=== PATIENT | female | born 1965 | race Caucasian/White ===

== ENCOUNTER 2021-11-25 04:40 | Observation (INO) ==
--- NOTE | 2021-10-27 08:28 | History & Physical Report ---
Date of Service October 27, 2021 date of surgery: 11/25/21 Procedure: Right Total Knee Arthroplasty Surgeon: Ian Sarabia Assessment & Plan (1) Arthritis of right knee: Plan: xrays show advanced DJD right knee with complete loss joint space medial compartment and PF joint. we discussed options, she would like to proceed with right TKA Gopi block at [facility] as outpatient joint program. will set up HHPT, ASA 81mg po bid x 1 month. she has failed cons measures including arthroscopy, cortisone inj, visco inj and NSAID therapy. The risks and benefits have been discussed including, but not limited to, risk of infection, nerve injury, stiffness, loss of motion, failure to improve, etc. Reasonable outcomes and options of treatment were discussed. An explanation of appropriate alternatives to the procedure that may be advantageous were discussed and their risks and benefits, as well as the risks and benefits of not proceeding with treatment. I offered to answer any additional inquiries concerning the treatment involved. All the patient's questions were answered. The patient is agreeable, understanding of the treatment plan and alternatives, and wishes to proceed with the treatment plan. History of Present Illness Chief Complaint: right knee pain Primary Care Provider: NO PCP Janette is a 56 year old female who complains of right knee pain, presents for pre-op evaluation prior to a right total knee replacement by Dr Sarabia at [facility]. she complains of pain and decreased range of motion in her right knee. Currently the patient states that the symptoms are moderate-severe. The pain is described as aching, sharp and throbbing. Her symptoms are aggravated by ascending stairs, daily activities, first steps while awake walking. Prior NSAIDs include Meloxicam and IBU. she has been treated with previous cortisone and visco injections in the past without much relief. in Jun 2020 she underwent Right knee arthroscopic partial medial meniscectomy partial lateral meniscectomy chondroplasty patellofemoral joint chondroplasty medial femoral condyle. Allergies Allergy/AdvReac Type Severity Reaction Status Date / Time Sulfa (Sulfonamide Allergy Severe Anaphylaxis Verified 06/29/21 09:49 Antibiotics) formaldehyde Allergy Intermediate Fluid Verified 07/06/21 13:43 build up, difficulty moving (knee injection rxn) graham syedgger adhesive Allergy Intermediate Hives Uncoded 06/29/21 09:49 Home Medications Medication Instructions Recorded Confirmed Type albuterol sulfate 90 mcg/actuation 2 puff INHALATION Q6H PRN 06/29/21 06/29/21 History aerosol inhaler (Ventolin HFA) famotidine 20 mg tablet (Pepcid) 20 mg PO HS 06/29/21 06/29/21 History fiber 2 tab PO QAM 06/29/21 06/29/21 History fluticasone propionate 100 1 inh INHALATION QAM 06/29/21 06/29/21 History mcg/actuation blister powder for inhalation (Flovent Diskus) fluticasone propionate 50 1 spray INTRANASAL QAM 06/29/21 06/29/21 History mcg/actuation nasal spray,suspension loratadine 10 mg tablet (Claritin) 10 mg PO QAM 06/29/21 06/29/21 History meloxicam 15 mg tablet 15 mg PO QAM 06/29/21 06/29/21 History multivitamin 1 tab PO QAM 06/29/21 06/29/21 History nystatin 100,000 unit/gram topical 1 applic TOPICAL BID 06/29/21 06/29/21 History powder (Nyamyc) omega-3 fatty acids 1,000 mg PO QAM 06/29/21 06/29/21 History peg 400-propylene glycol (PF) 0.4 1 drp OPHTHALMIC (EYE) QID 06/29/21 06/29/21 History %-0.3 % eye drops in a dropperette (Systane (PF)) Past Med/Surg History Medical History Asthma Stable GERD (gastroesophageal reflux disease) Controlled Morbid obesity Osteoarthritis Sleep apnea CPAP (compliant) Surgical History History of ankle surgery left History of arthroscopy of left knee History of arthroscopy of right knee History of bilateral tubal ligation History of carpal tunnel surgery of left wrist History of carpal tunnel surgery of right wrist x2 History of cholecystectomy History of colonoscopy History of dilatation and curettage History of endometrial ablation History of partial hysterectomy History of repair of right rotator cuff History of tooth extraction S/P surgical removal of pilonidal cyst S/P trigger finger release R/L thumb Family History Other No family history of adverse response to anesthesia Social History Smoking Status: Former smoker Second Hand Exposure: No; Hx Alcohol Use: Yes Hx Substance Use: No Preferred Language: Guinean Communication Ability: Effective Assembler Equipment Required: No Beliefs That Will Affect Care: None Current Living Situation: Spouse and Family Current Living Situation Comment: Lives with and son Feels Safe at Home: Yes Assistive Devices: Cane, CPAP and Glasses Review of Systems Review of Systems: All systems reviewed & are unremarkable except as noted in HPI & below Constitutional: no fever, no chills and no sweats Respiratory: no cough and no dyspnea Cardiovascular: no chest pain, no dyspnea and no orthopnea Gastrointestinal: no abdominal pain, no nausea and no vomiting Musculoskeletal: as per Subjective / HPI Physical Exam Physical Exam: HT: 5ft 2in WT: 110kg Constitutional: WD/WN, vitals as above no acute distress Respiratory: normal respiratory effort, lungs clear to auscultation no respiratory distress, no labored breathing and does not use accessory muscles Cardiovascular: RRR, no murmur, no edema Gastrointestinal (Abdomen): normal bowel sounds, soft, nontender, no hepatosplenomegaly Musculoskeletal: Knee: + knee abnormal to inspection (RIGHT KNEE), + effusion (+1 effusion), + limited ROM of knee (ROM 0/3/110), + knee ROM with crepitation, + joint line tenderness (medial joint line) and + Janeth's sign positive; no deformity, no skin erythema, no ecchymosis, no valgus laxity, no varus laxity, anterior drawer test negative, Brianna's sign negative and pivot shift test negative Results & Data Results & Data ([facility]) Diagnostic Findings Right Knee X-ray: Right knee series showing advanced degenerative changes to the right knee, narrowing of the medial compartment and patello-femoral joint with patellar spurring noted, findings showing joint space narrowing of the medial compartment and patello-femoral joint, osteophyte formation and subchondral sclerosis noted. overall varus alignment. no acute bony pathology noted.
--- NOTE | 2021-11-16 11:09 | Anesthesiology Consultation ---
Date of Service November 16, 2021 Assessment & Plan (1) Encounter for pre-operative examination: - back pain/recent ER visit: Pt went to [facility] ER in [place] 11/17/21 for back pain. Pt states refused pain medication as thought would prevent surgery progressing. She was advised records will need reviewed with anesthesiologist in addition to review of cardiac history below, but she can proceed with recommended regimens by managing providers and to call our office with any new or changed meds, provided my direct #. Will attempt to obtain copy of ER note and testing. Pt states is also to call PCP office today for further discussion/pre-op determination. - cardiac murmur: chronic per pt d/t rheumatic fever in 90s. Per patient cleared by PCP with knowledge of murmur for TKA, appt 11/10. We will attempt to obtain copy of office note, any available echo. - palpitations: chronic, rare "flutter" associated with "difficulty taking deep breath" lasting several seconds then fully resolving. Denies change or worsening, dizziness or lightheadedness. Denies previous cardiology evaluation, expresses PCPs have monitored in past. - Pt reports seeing pulmonology provider Keiry Chi with [facility] for asthma and sleep apnea, will attempt to obtain copy of most recent pulm note. - Surgery re-scheduled since 06/2021 anesthesia review. Below from that [facility] appt note: - h/o post-op hypoxia, "improved with deep breaths" per previous anesthesia consult. - Outpatient joint pathway: Per OR booking comments/patient, plan for outpatient joint program. Patient seen at [facility] 07/06. Case reviewed with Dr. Beth. Patient reports strong post-op family support stating , son and daughter will be available to help her post-operatively. Patient is an acceptable risk to proceed as possible outpatient joint pathway pending perioperative course. Surgeon's office arranging post-op home management. - COVID screening: Per home assessment nurse on 11/03/2021: Travel screen negative, no known COVID-19 positive contacts or current COVID-19 related symptoms in past 2 weeks. Patient vaccinated. Surgeon arranging preop COVID testing, scheduled 11/23/2021. Awaiting results. Chart Review Chart Review: Pending: Refer to Additional Notes / Consult section and Patient NOT seen in Pre Admission Testing History Surgery Operation Date: 11/25/21 14:00 Proposed Procedures p OP: Right Total Knee Arthroplasty - Ian Sarabia DO Height/Weight Height: 5 ft 2 in Weight: 111.13 kg Allergies Allergy/AdvReac Type Severity Reaction Status Date / Time Sulfa (Sulfonamide Allergy Severe Anaphylaxis Verified 11/03/21 12:34 Antibiotics) formaldehyde Allergy Intermediate Fluid Verified 11/03/21 12:34 build up, difficulty moving (knee injection rxn) nickel Allergy Mild RASH WITH Verified 11/03/21 12:34 JEWELRY graham hugger adhesive Allergy Intermediate Hives Uncoded 11/03/21 12:34 Medications Home Medications Medication Instructions Recorded Confirmed Last Taken albuterol sulfate 90 mcg/actuation 2 puff INHALATION Q6H PRN 06/29/21 11/03/21 Unknown aerosol inhaler (Ventolin HFA) famotidine 20 mg tablet (Pepcid) 20 mg PO HS 06/29/21 11/03/21 Unknown fiber 2 tab PO QAM 06/29/21 11/03/21 Unknown fluticasone propionate 100 1 inh INHALATION QAM 06/29/21 11/03/21 Unknown mcg/actuation blister powder for inhalation (Flovent Diskus) fluticasone propionate 50 1 spray INTRANASAL QAM 06/29/21 11/03/21 Unknown mcg/actuation nasal spray,suspension meloxicam 15 mg tablet 15 mg PO QAM 06/29/21 11/03/21 Unknown multivitamin 1 tab PO QAM 06/29/21 11/03/21 Unknown nystatin 100,000 unit/gram topical 1 applic TOPICAL BID PRN 06/29/21 11/03/21 Unknown powder (Nyamyc) omega-3 fatty acids 1,000 mg PO QAM 06/29/21 11/03/21 Unknown peg 400-propylene glycol (PF) 0.4 1 drp OPHTHALMIC (EYE) QID 06/29/21 11/03/21 Unknown %-0.3 % eye drops in a dropperette (Systane (PF)) diclofenac sodium 1 % topical gel 2 g TOPICAL QID 11/03/21 11/03/21 Unknown montelukast 10 mg tablet 10 mg PO QAM 11/03/21 11/03/21 Unknown Past Medical History Medical History (Updated 11/18/21 @ 09:11 by Melina Bellamy PA-C) Asthma Stable-LAST RESCUE INHALER USE LAST WEEK Cardiac murmur chronic per pt d/t rheumatic fever in 90s, she states also has chronic rare "flutter" lasting seconds associated with difficulty taking a deep breath then self-resolving. Denies change or worsening. GERD (gastroesophageal reflux disease) Controlled History of COVID-19 08/27/[address] [facility]S FEVER, FATIGUE, BODY ACHES, SINUS SYMPTOMS, COUGH- RECOVERED AT HOME-ALL RESOLVED EXCEPT STILL HAVING SOME SINUS ISSUES Kidney stones Morbid obesity Osteoarthritis Sleep apnea CPAP (compliant) Past Family History Family History Brother Family history of diabetes mellitus Brother Family history of diabetes mellitus Other No family history of adverse response to anesthesia Past Surgical History Surgical History History of ankle surgery left History of arthroscopy of left knee History of arthroscopy of right knee History of bilateral tubal ligation History of carpal tunnel surgery of left wrist History of carpal tunnel surgery of right wrist x2 History of cholecystectomy History of colonoscopy History of dilatation and curettage History of endometrial ablation History of lithotripsy History of partial hysterectomy History of repair of right rotator cuff X 2 History of tooth extraction S/P surgical removal of pilonidal cyst S/P trigger finger release R/L thumb Social History Smoking Status: Former smoker Do You Dip or Chew Tobacco: No Smoking End Date: QUIT 33 YRS AGO Hx Alcohol Use: Yes Alcohol type: wine alcohol intake frequency: other Alcohol Intake Frequency Comment: 1-2 X A MONTH Hx Substance Use: No substance use type: does not use Testing Laboratory Results 11/03/2021 WBC: 8.5 H/H: 15/48 PLATELETS: 295 SODIUM: 137 POTASSIUM: 3.7 CHLORIDE: 105 CO2: 27 BUN: 10 CREATININE: 0.7 GLUCOSE: 129 A1c: 5.9% PT: 11.2 PTT: 34.9 INR: 1 UA: light yellow, clear, trace blood, negative Electrocardiogram Date: 07/06/21 NSR, rate 68 bpm Chest X-Ray Date: 07/06/21 No lines and tubes are seen. The cardiomediastinal silhouette is normal. The lungs are clear. No evidence of pleural effusion or pneumothorax. IMPRESSION: No acute chest disease.
[2021-11-25] MEDS ORDERED: oxyCODONE HCL 10 MG TABCR (OxyCONTIN) PO SCH (06:00)
[2021-11-25] MEDS ORDERED: METOCLOPRAMIDE HCL 10 MG TABLET PO SCH (06:00)
[2021-11-25] MEDS ORDERED: TRANEXAMIC ACID 1,000 MG **IV Pre-op IV SCH (06:00)
[2021-11-25] MEDS ORDERED: FAMOTIDINE 20 MG TAB PO SCH (06:00)
[2021-11-25] MEDS ORDERED: dexAMETHasone 4 MG TAB PO SCH (06:00)
[2021-11-25] MEDS ORDERED: ROPIVACAINE 0.5% HCL/PF 150 MG, BUPIVACAINE 0.75% MPF 20 ML, EPINEPHrine 30MG/30ML (OR ... INFIL SCH (06:00)
[2021-11-25] MEDS ORDERED: ceFAZolin 2000MG 2,000 MG/15 ML SYR IV SCH (06:00)
[2021-11-25] MEDS ORDERED: TRANEXAMIC ACID 1,000 MG **IV Intra-op IV SCH (06:00)
[2021-11-25] MEDS ORDERED: ACETAMINOPHEN 500 MG TAB PO SCH (06:00)
[2021-11-25] MEDS ORDERED: GABAPENTIN 600 MG DOSE PO SCH (06:00)
[2021-11-25] MEDS ORDERED: LR 500ML BOLUS, THEN 15ML/HR IV SCH (06:00)
[2021-11-25] MEDS ORDERED: BUPIVACAINE 0.25% 30 ML VIAL ONE (06:11)
[2021-11-25] MEDS ORDERED: DEXAMETHASONE SOD INJ 4 MG/ML VIAL ONE (06:11)
[2021-11-25] MEDS ORDERED: EPINEPHrine INJ 1 MG/ML AMP ONE (06:11)
[2021-11-25] MEDS ORDERED: BUPIVACAINE 0.5 % 5 MG/1 ML PF 10ML VIAL ONE (06:11)
[2021-11-25] MEDS ORDERED: PROPOFOL IV EMULSION 10 MG/ML 20 ML VIAL IV ONE (06:39)
[2021-11-25] MEDS ORDERED: fentaNYL citrate 100 MCG/2 ML VIAL ONE (06:51)
[2021-11-25] MEDS ORDERED: MIDAZOLAM HCL 1 MG/ML 2ML VIAL ONE ×2 (06:52)
--- NOTE | 2021-11-25 07:06 | History & Physical Bridge Note ---
Date of Service November 25, 2021 History & Physical Bridge Note I have examined the patient, reviewed the History & Physical and in the interval since the performance of the History & Physical I have noted the following changes of clinical significance: no changes noted
[2021-11-25] MEDS ORDERED: fentaNYL citrate 100 MCG/2 ML VIAL IV PRN (07:27)
[2021-11-25] MEDS ORDERED: ONDANSETRON INJ 2 MG/ML 2 ML VIAL IV PRN ×2 (07:27→10:11)
[2021-11-25] MEDS ORDERED: ATROPINE SULFATE 0.1 MG/ML 10ML SYR IV PRN (07:27)
[2021-11-25] MEDS ORDERED: ePHEDrine sulfate 50 MG/ML AMP IV PRN (07:27)
[2021-11-25] MEDS ORDERED: ORTHO JOINT ANESTHETIC ONE (07:31)
--- NOTE | 2021-11-25 08:31 | Operative Report ---
Post Operative Report Pre & Post Diagnosis Operation Date: 11/25/21 07:15 Pre-Op Diagnosis: Right Knee Osteoarthritis Post-Op Diagnosis: Right Knee Osteoarthritis I identified the patient and participated in the time-out.: Yes Procedure Operation Date: 11/25/21 07:15 Actual Procedures p Right Total Knee Arthroplasty(Right) utilizing Gopi [employer] persona patient matched size 6 right standard titanium size D stemmed tibia size 10 polymedial constrained 28 oval patella Ian Sarabia DO Surgeon Ian Sarabia DO Automated Equipment Engineer Technician ADAM Light Estimated Blood Loss 5 Findings Consistent with Post-Op Diagnosis Patient presents with severe end-stage DJD 10 degree flexion contracture varus alignment subchondral sclerosis marginal osteophytes eburnated [id number] with moderate to large effusion Specimens Bone and cartilage Drains Medium bore Hemovac Anesthesia Type MAC Spinal Regional Complications none Disposition Accompanied Patient To Recovery: No Disposition: Recovery Room Indications Patient presents with severe end-stage tricompartmental degenerative joint disease no response to conservative management failed patient fell attempted corticosteroid injection viscosupplementation relative rest activity modification the above intraoperative findings were noted Description of Procedure After proper prepping and draping of the Right lower extremity anterior midline incision was made over the region of the extensor extensor mechanism after meticulous hemostasis was obtained and maintained in subcutaneous tissues a medial parapatellar incision was made The patella was subluxed lateralward the medial lateral gutter were cleaned from any hypertrophic synovitis and scar tis javy of the distal femoral block was placed and the distal femoral osteotomy cut was made subsequently the chamfers anterior and posterior osteotomy cuts were made utilizing the 4-in-1 block the tibia was subsequently subluxed anteriorward medial and ateral meniscal remnants were excised in their entirety remnants of the anterior and posterior cruciate ligaments were excised in their entirety excellent exposure of the proximal tibia was obtained the tibial osteotomy guide was placed on the proximal tibial osteotomy cut was made once again the knee was irrigated with copious amounts of sterile saline solution the patella was subsequently everted lateralward thickened scar tissue around the patella was removed the patella was subsequently cut utilizing a freehand technique and was drilled prepared for final preparation and placement of patella socially flexion-extension gaps were checked and the equal and symmetric trials were placed to the appropriate femoral and tibial trials with poly-spacer being placed for equal flexion and extension gaps and full range of motion including extension to 0 and flexion to 140 the trial components after having been taken to recovery range of motion was subsequently removed meticulous hemostasis was obtained and maintained subsequently a knee block injection of joint cocktail including ropivacaine 0.5% 150 mg. Bupivacaine 0.5% epinephrine 1-200,030 mL's toradol 30 mg dexamethasone 4 mg ketamine 10 mg clonidine 100 micrograms normal saline solution 30 mg was infiltrated into the soft tissues of the posterior knee medial lateral gutters and periosteal synovium special attention was paid to protect neurovascular structures at all times subsequently trial components having been removed the knee was irrigated with sterile saline solution. debris was removed the proximal tibia was subsequently prepared and was made ready for the placement of the tibial component tibial component was also cemented and tamped into position the femoral component was subsequently placed and cemented in the position the patellar component was subsequently cemented in position because hemostasis once again obtained and maintained wound having been thoroughly irrigated with debridement and debridement lavage was performed as well as a medial parapatellar incision closed with #1 Vicryl in interrupted fashion subcutaneous was closed with #2 Vicryl skin was closed with skin clips. PA-C was necessary for prepping and drapping as well as wound closure of deep fascia Sub cutaneous tissue and skin and was necessary for the case. A sterile compressive dressing was placed patient was taken to recovery in stable condition of report dictated by Cornell I attest to the content of the Intraoperative Record and any orders documented therein. Any exceptions are noted below.Due to the complex nature of the procedure, the entire surgery was performed with the operational assistance of ADAM Light. The hospital nursing assistant, under direct supervision, was involved in the actual performance of all aspects of the surgical procedure including hemostasis, tissue retraction and incision, instrument management, patient positioning, and wound closure. I attest to the content of the Intraoperative Record and any orders documented therein. Any exceptions are noted below.
[2021-11-25] MEDS ORDERED: bisacodyL 10 MG SUPP PR PRN (10:11)
[2021-11-25] MEDS ORDERED: METOCLOPRAMIDE HCL INJ 5 MG/ML 2 ML VIAL IV PRN (10:11)
[2021-11-25] MEDS ORDERED: NALOXONE HCL 0.4 MG/1 ML VIAL/CARP IV PRN (10:11)
[2021-11-25] MEDS ORDERED: MAGNESIUM HYDROXIDE SUSP 30 ML UDC PO PRN (10:11)
[2021-11-25] MEDS ORDERED: NON-FORMULARY MEDICATION (Peg 400-Propylene Glycol (Pf) [Systane (Pf)] 0.4-0.3 % Dropperet OP SCH (10:11)
[2021-11-25] MEDS ORDERED: HYDROmorphone INJ 1 MG/ML SYRINGE IV PRN (10:11)
[2021-11-25] MEDS ORDERED: diphenhydrAMINE Capsule 25 MG CAP PO PRN (10:11)
[2021-11-25] MEDS ORDERED: ALBUTEROL HFA 8 GM INHALER INH PRN (10:11)
[2021-11-25] MEDS ORDERED: ALUMINUM/MAGNESIUM SUSP 30 ML UDC PO PRN (10:11)
[2021-11-25] MEDS ORDERED: SODIUM CHLORIDE 0.9% 1000ML 1,000 ML IV SCH (10:11)
[2021-11-25] MEDS ORDERED: [UNRECOGNIZED DRUG - OTHER] INH SCH (10:11)
[2021-11-25] MEDS ORDERED: oxyCODONE HCL IR 5 MG TAB (IMMEDIATE RELEASE) PO PRN (10:11)
[2021-11-25] MEDS ORDERED: NYSTATIN POWDER 15GM BTL EXT PRN (10:16)
--- NOTE | 2021-11-25 10:32 | Anesthesiology Progress Note ---
Date of Service November 25, 2021 Anesthesia Post Procedure Vital Signs Vital Signs: Temp Pulse Pulse Resp BP BP Pulse Ox 11/25/21 09:50 61 15 99/57 L 97 11/25/21 09:40 36.5 C 62 14 103/51 L 97 11/25/21 09:30 62 16 100/48 L 100 11/25/21 09:20 66 18 91/50 L 100 11/25/21 09:10 77 19 95/54 L 100 11/25/21 09:01 36.7 C 80 20 91/53 L 100 11/25/21 05:33 36.7 C 78 20 115/87 97 Transfer of Care Handoff Completed per policy Notes Mental Status: alert / awake / arousable Patient Amnestic to Procedure: Yes Nausea / Vomiting: adequately controlled Pain: adequately controlled Airway Patency, RR, SpO2: stable & adequate BP & HR: stable & adequate Hydration State: stable & adequate Neuraxial Anesthesia: was administered and sensory block is resolving Anesthetic Complications: no major complications apparent and Pt Satisfied with anesthetic care
--- NOTE | 2021-11-25 10:45 | XRay Report ---
RIGHT KNEE 2 VIEWS History: Right total knee arthroplasty. Degenerative arthritis. Postop. FINDINGS: The patient is status post a right total knee arthroplasty. The hardware is intact. No frac ture or dislocation. Surgical drains are in place. IMPRESSION: Right total knee arthroplasty. No evidence for hardware complication. ACT 112: Negative or not required by law. Electronically signed by: Bowen Cornell M.D. 11/25/2021 10:43 AM
[2021-11-25] MEDS: MONTELUKAST SODIUM 10 MG TABLET PO SCH (11:13)
[2021-11-25] MEDS: KETOROLAC 30 MG/ML VIAL IV SCH ×3 (11:13→23:33)
[2021-11-25] MEDS: FLUTICASONE PROPIONATE NA SPR 16 GM BTL NAE SCH (11:27)
[2021-11-25] MEDS ORDERED: FLUTICASONE FUROATE 100MCG 14 PUFFS/INHALER INH SCH (11:30)
[2021-11-25] MEDS: FLOVENT 100 MCG INH SCH ×2 (12:06→21:22)
[2021-11-25] MEDS: CALCIUM POLYCARBOPHIL 625MG TAB PO SCH (12:06)
[2021-11-25] MEDS: ACETAMINOPHEN 500 MG TAB PO SCH ×2 (14:06→21:20)
[2021-11-25] MEDS: ceFAZolin 2000MG 2,000 MG/15 ML SYR IV SCH ×2 (15:47→23:33)
[2021-11-25] MEDS ORDERED: SENNA 8.6 MG TAB PO SCH (21:00)
[2021-11-25] MEDS: ASPIRIN 81 MG ECTAB PO SCH (21:19)
[2021-11-25] MEDS: DOCUSATE SODIUM 100 MG CAP PO SCH (21:20)
[2021-11-26] MEDS: KETOROLAC 30 MG/ML VIAL IV SCH (05:44)
[2021-11-26] MEDS: ACETAMINOPHEN 500 MG TAB PO SCH ×2 (05:45→14:36)
[2021-11-26] MEDS ORDERED: PNEUMOCOCCAL POLYSACCHARIDES 25 MCG/0.5 ML VIAL/SYR IM ONE (08:00)
[2021-11-26 08:22] LABS: Hematocrit (blood only) 42.9 % (37-47); Hemoglobin 14.3 g/dL (12.0-16.0); Mean Corpuscular Hemoglobin 30.6 pg (25-34); Mean Corpuscular Hgb Conc 33.3 g/dL (32-36); Mean Corpuscular Volume 91.7 fL (80-100); Mean Platelet Volume 9.9 fL (7.4-10.4); Platelet Count 351 K/uL (130-400); RDW Coefficient of Variation 13.5 % (11.5-14.5); RDW Standard Deviation 45.2 fL (36.4-46.3); Red Blood Count 4.68 M/uL (4.2-5.4); White Blood Count 15.39 K/uL (4.8-10.8)
[2021-11-26] MEDS: CALCIUM POLYCARBOPHIL 625MG TAB PO SCH (08:36)
[2021-11-26] MEDS: ASPIRIN 81 MG ECTAB PO SCH (08:36)
[2021-11-26] MEDS: DOCUSATE SODIUM 100 MG CAP PO SCH (08:37)
[2021-11-26] MEDS: MONTELUKAST SODIUM 10 MG TABLET PO SCH (08:37)
[2021-11-26] MEDS: FLUTICASONE PROPIONATE NA SPR 16 GM BTL NAE SCH (08:37)
[2021-11-26] MEDS: FLOVENT 100 MCG INH SCH (08:38)
[2021-11-26 08:53] LABS: BUN Creatinine Ratio 20.7 (10-20); Calcium 9.6 mg/dl (8.5-10.1); Creatinine Clr Calc Pharmacy 91.4 ml/min; Est GFR (Non-African American) 81.1 ml/min; Potassium 3.9 mmol/L (3.5-5.1)
[2021-11-26] MEDS ORDERED: MULTIVITAMIN TAB PO SCH (09:00)
--- NOTE | 2021-11-26 09:59 | Orthopedic Progress Note ---
Date of Service November 26, 2021 Assessment & Plan (1) Arthritis of right knee: Plan: Postop day 1 status post right total knee arthroplasty PT/OT protocols. Weightbearing as tolerated. DVT prophylaxis-aspirin p.o. twice daily, SCDs, BRAD xiong. Pain management as written DC planning-patient is planning for home health services upon discharge. Admission and Anticipated Discharge Date Admission Date: November 25, 2021 Subjective Postop day 1 Patient sitting in the chair at the bedside. Having some mild pain this morning in the knee. No other complaints. Denies shortness of breath, chest pain, lightheadedness. Physical Exam Physical Exam: Dressings are clean, dry, and intact. Calves are soft and nontender. Neurovascular is intact. Toes are mobile. Results & Data ([facility]) Vital Signs (Past 12 Hours) Vital Signs Temp Pulse Resp BP Pulse Ox 11/26/21 07:24 36.3 C L 59 L 18 119/63 100 11/26/21 03:50 36.4 C L 70 16 129/70 96 Laboratory Results Laboratory Results WBC 15.39 K/uL (4.8-10.8) H 11/26/21 07:48 RBC 4.68 M/uL (4.2-5.4) 11/26/21 07:48 Hgb 14.3 g/dL (12.0-16.0) 11/26/21 07:48 Hct 42.9 % (37-47) 11/26/21 07:48 MCV 91.7 fL (80-100) 11/26/21 07:48 MCH 30.6 pg (25-34) 11/26/21 07:48 MCHC 33.3 g/dL (32-36) 11/26/21 07:48 RDW Std Deviation 45.2 fL (36.4-46.3) 11/26/21 07:48 RDW Coeff of Hardeep 13.5 % (11.5-14.5) 11/26/21 07:48 Plt Count 351 K/uL (130-400) 11/26/21 07:48 MPV 9.9 fL (7.4-10.4) 11/26/21 07:48 Sodium 134 mmol/L (136-145) L 11/26/21 07:48 Potassium 3.9 mmol/L (3.5-5.1) 11/26/21 07:48 Chloride 102 mmol/L (98-107) 11/26/21 07:48 Carbon Dioxide 24 mmol/L (21-32) 11/26/21 07:48 Anion Gap 8 (3-11) 11/26/21 07:48 BUN 17 mg/dl (6-23) 11/26/21 07:48 Creatinine 0.82 mg/dl (0.6-1.2) 11/26/21 07:48 Est Cr Clr Drug Dosing 91.4 ml/min 11/26/21 07:48 Est GFR ( Amer) 94.0 ml/min 11/26/21 07:48 Est GFR (Non-Af Amer) 81.1 ml/min 11/26/21 07:48 BUN/Creatinine Ratio 20.7 (10-20) H 11/26/21 07:48 Glucose 156 mg/dl (70-99(Fasting)) H 11/26/21 07:48 Calcium 9.6 mg/dl (8.5-10.1) 11/26/21 07:48 SARS-CoV-2, RNA, NAAT NEGATIVE (NEGATIVE) 11/25/21 05:15 Blood Type B Negative 11/25/21 05:56 Antibody Screen NEGATIVE 11/25/21 05:56 Impressions Knee X-Ray 11/25/21 09:05 RIGHT KNEE 2 VIEWS History: Right total knee arthroplasty. Degenerative arthritis. Postop. FINDINGS: The patient is status post a right total knee arthroplasty. The hardware is intact. No fracture or dislocation. Surgical drains are in place. IMPRESSION: Right total knee arthroplasty. No evidence for hardware complication. ACT 112: Negative or not required by law. Electronically signed by: Bowen Cornell M.D. 11/25/2021 10:43 AM
--- NOTE | 2021-11-30 08:00 | Discharge Summary ---
Date of Service date of discharge: November 26, 2021 date of admission: 11/25/21 Admission HPI Per Admitting Provider Janette is a 56 year old female who complains of right knee pain, presents for pre- op evaluation prior to a right total knee replacement by Dr Sarabia at [facility]. she complains of pain and decreased range of motion in her right knee. Currently the patient states that the symptoms are moderate-severe. The pain is described as aching, sharp and throbbing. Her symptoms are aggravated by ascending stairs, daily activities, first steps while awake walking. Prior NSAIDs include Meloxicam and IBU. she has been treated with previous cortisone and visco injections in the past without much relief. in Jun 2020 she underwent Right knee arthroscopic partial medial meniscectomy partial lateral meniscectomy chondroplasty patellofemoral joint chondroplasty medial femoral condyle. Principal Diagnosis right knee pain Discharge Exam Musculoskeletal right knee: NVDI, calf SNT, negative francisco sign. DP palpable, able to wiggle toes/ankle movement without difficulty. DARRYL dressing clean dry and intact. expected post-operative bruising noted. Discharge Data Allergies Allergy/AdvReac Type Severity Reaction Status Date / Time Sulfa (Sulfonamide Allergy Severe Anaphylaxis Verified 11/25/21 05:40 Antibiotics) formaldehyde Allergy Intermediate Fluid Verified 11/25/21 05:40 build up, difficulty moving (knee injection rxn) nickel Allergy Mild RASH WITH Verified 11/25/21 05:40 JEWELRY graham hugger adhesive Allergy Intermediate Hives Uncoded 11/25/21 05:40 Procedures Performed Operation Date: 11/25/21 07:15 Actual Procedures p Right Total Knee Arthroplasty(Right) - Ian Sarabia DO Ordered Studies 11/25/21 05:00 US - OR guided needle placemen Routine Hospital Course (1) Arthritis of right knee: Postop day 1 status post right total knee arthroplasty PT/OT protocols. Weightbearing as tolerated. DVT prophylaxis-aspirin p.o. twice daily, SCDs, BRAD xiong. Pain management as written DC planning-patient is planning for home health services upon discharge. Total Time Total Time Spent Total Time Spent (In Minutes): 20 Discharge Plan Discharge Items Patient Disposition: Home - Home Health Services Reason For Visit: Right Knee Osteoarthritis Discharge Diagnosis: RIGHT TOTAL KNEE REPLACEMENT Activity: Per Instructions section Lifting: Wait until after follow-up appointment Weightbearing: Right weightbearing Weightbearing Comment: WBAT WITH WALKER Non-emergency contact: Surgeon Call non-emergency contact if: you have any medication questions, your temperature is above 101, your wound has increased redness, your wound has increased drainage and your wound pain has increased Follow-up/Referrals: Ian Sarabia DO [Surgeon] - (Follow-up in 14 days from the day of your surgery for your first postoperative visit) Ca Lorenzana PA-C [Primary Care Provider] - Diet: Regular Addtl Attending Provider Instructions: ACTIVITY RECOMMENDATIONS: SELF CARE INSTRUCTIONS AFTER TOTAL KNEE REPLACEMENT A. You may need to continue a physical therapy program after discharge from the hospital. There are several options available to you. Your doctor will assist you in selecting the best one for you. 1. An out-patient facility 2 to 3 times a week for therapy or home therapy. 2. Continue working on all exercises taught to you in the hospital. Your goals should be to increase bending of your knee to 90 degrees and beyond and to fully straighten your knee. B. You may progress at your own pace from walking with a walker or crutches to a cane; then to no assistive devices. C. Make walking a part of your daily routine. Be up as much as comfortable with rest periods throughout the day. Rest with leg elevation is very important. Use the ice wrap frequently for the first 3-4 weeks. D. There are no restrictions on activities. You may ride in a car, shop, participate in cattle tester and all social activities. E. Wear the long elastic stockings (BRAD hose) 20 hours a day for 2 weeks after surgery. They can be removed several times a day for laundering and for a bath. F. You may shower, no tub baths until cleared by your doctor. SPECIAL CARE INSTRUCTIONS: VERY IMPORTANT TO READ AND REVIEW A. There are a few signs you need to watch for after you are home. Call [facility] if you notice any of the followin. Increased severe knee pain. Some pain is expected especially when you exercise. 2. Increased swelling in your leg or knee; pain or swelling of the calf muscle in either lower leg. 3. Any fluid drainage from the incision. 4. Shortness of breath or chest pain. B. Please call [facility] at if you have any concerns or questions about your operation or recovery. The doctor or his nurse will return your call promptly. C. You must take antibiotics before dental work, bladder, bowel or other surgery. Your doctor will provide you with a permanent care to carry describing this precaution. IMPORTANT: * REMEMBER TO TAKE ASPIRIN, 81 MG, TWICE DAILY FOR 4 WEEKS UNLESS OTHERWISE DIRECTED. THIS IS YOUR BLOOD THINNER. * HIGH RISK PATIENTS MAY BE PRESCRIBED A STRONGER BLOOD THINNER. THIS WILL BE PROVIDED AT DISCHARGE. * CALL IF INCREASED PAIN, REDNESS, DRAINAGE OR FEVER GREATER THAT 101. * WEAR BRAD HOSE 20 HOURS PER DAY FOR 2 WEEKS. * DARRYL Dressing- This is a large suction dressing covering your incision. This will help pull any excess drainage from the wound and allow your incision to heal properly. You may shower with this if you can keep the unit outside of the shower. If any bleeding or leakage is noted please call your doctor's office. This will remain on your incision for 7 days and then should be removed. This can be done yourself or by the home nursing staff if applicable. The entire unit is disposable once removed. Once removed, keep incision clean and dry. If redness or drainage is noted, please call your surgeon. once this is removed, follow these instructions: DERMABOND Prineo- This is a mesh tape dressing that is covered with glue. It should remain in place until the incision is properly healed, usually 10-14 days. This dressing is designed to naturally slough off. You may trim the excess mesh tape as it peels off. Incision may be briefly wet in a shower. Dry immediately by blotting with a clean, dry towel. Do not bath or swim until instructed by your doctor. Do not scratch, rub, or pick at the dressing. Do not apply any topical ointments or lotions until dressing is completely removed and/or instructed by your doctor. There may be a small piece of suture material at one end of your incision. Do not pull or trim this. If it is bothersome or catching on clothing, you may cover it with a band-aid. IF INCISION IS LEAKING THROUGH DRESSING, CALL THE OFFICE . FOLLOW UP VISIT: If appointment is not already scheduled: Please call [facility] to make a follow-up appointment for 2 weeks after your surgery at . Stand-Alone Forms: My [facility] Medications and DC Order Prescriptions: New aspirin 81 mg Tablet,Delayed Release (Dr/Ec) 81 mg PO BID 30 Days Qty: 60 RF: 0 acetaminophen [Tylenol Extra Strength] 500 mg Tablet 1,000 mg PO Q8 14 Days Qty: 84 RF: 0 polyethylene glycol 3350 [Miralax] 17 gram powder in packet 17 g PO DAILY PRN (Reason: constipation) Qty: 5 RF: 0 oxycodone 5 mg Tablet 5 mg PO Q4H MDD 6 PRN (Reason: pain) Qty: 30 RF: 0 Continued multivitamin Tablet 1 tab PO QAM RF: 0 famotidine [Pepcid] 20 mg Tablet 20 mg PO HS RF: 0 Flovent Diskus 100 mcg/actuation Blister With Device 1 inh INHALATION BID RF: 0 nystatin [Nyamyc] 100,000 unit/gram Powder 1 applic TOPICAL BID PRN (Reason: Skin Irritation) RF: 0 albuterol sulfate [Ventolin HFA] 90 mcg/actuation Hfa Aerosol Inhaler 2 puff INHALATION Q6H PRN (Reason: Shortness Of Breath) RF: 0 fluticasone propionate 50 mcg/actuation [place],Suspension 1 spray INTRANASAL QAM RF: 0 Systane (PF) 0.4-0.3 % Dropperette 1 drp OPHTHALMIC (EYE) QID RF: 0 fiber Tablet,Chewable 2 tab PO QAM RF: 0 montelukast 10 mg Tablet 10 mg PO QAM RF: 0 diclofenac sodium 1 % Gel 2 g TOPICAL QID RF: 0 Discontinued meloxicam 15 mg Tablet 15 mg PO QAM RF: 0 Fish Oil Capsule 1,000 mg PO QAM RF: 0 Discharge Orders: Discharge Order (Routine); Ordered 11/26/21 Ordered By: Albert Brown/Other Patient Handouts: Knee Replace Recovery, Knee Replace Manage Pain Admission Data Admit Date/Time: 11/25/21 09:05 Attending Provider: Ian Sarabia Admit Provider: Ian Sarabia Primary Care Provider: Ca Lorenzana Other Interventions: Discharge Summary Assessment (RN) Last Done: 11/26/21 13:19
== END 2021-11-26 15:32 | disposition home health service (06) ==
LOC: 3W 04:40 → ASU 04:40

== ENCOUNTER 2022-03-24 05:42 | Observation (INO) ==
--- NOTE | 2022-02-16 15:24 | PAT Medication Instructions ---
Medication Instructions Date of Service February 16, 2022 Home Medications albuterol sulfate 90 mcg/actuation aerosol inhaler (Ventolin HFA) 2 puff inhalation Q6H PRN famotidine 20 mg tablet (Pepcid) 20 mg PO HS fiber 2 tab PO QAM fluticasone propionate 100 mcg/actuation blister powder for inhalation (Flovent Diskus) 1 inh inhalation BID fluticasone propionate 50 mcg/actuation nasal spray,suspension 1 spray intranasal QAM multivitamin 1 tab PO QAM nystatin 100,000 unit/gram topical powder (Nyamyc) 1 applic topical BID PRN peg 400-propylene glycol (PF) 0.4 %-0.3 % eye drops in a dropperette (Systane (PF)) 1 drp ophthalmic (eye) QID montelukast 10 mg tablet 10 mg PO QAM acetaminophen 500 mg tablet 1,000 mg PO Q6H PRN STOP taking 24 hours before surgery nystatin 100,000 unit/gram topical powder (Nyamyc) 1 applic topical BID PRN DO NOT take the morning of surgery fiber 2 tab PO QAM multivitamin 1 tab PO QAM montelukast 10 mg tablet 10 mg PO QAM Take morning of surgery With a small sip of water, OTHERWISE NOTHING TO EAT OR DRINK AFTER MIDNIGHT: albuterol sulfate 90 mcg/actuation aerosol inhaler (Ventolin HFA) 2 puff inhalation Q6H PRN(use if needed; please bring with you to hospital day of surgery if possible) fluticasone propionate 100 mcg/actuation blister powder for inhalation (Flovent Diskus) 1 inh inhalation BID fluticasone propionate 50 mcg/actuation nasal spray,suspension 1 spray intranasal QAM peg 400-propylene glycol (PF) 0.4 %-0.3 % eye drops in a dropperette (Systane (P F)) 1 drp ophthalmic (eye) QID acetaminophen 500 mg tablet 1,000 mg PO Q6H PRN(if needed) Take evening before surgery albuterol sulfate 90 mcg/actuation aerosol inhaler (Ventolin HFA) 2 puff inhalation Q6H PRN(if needed) famotidine 20 mg tablet (Pepcid) 20 mg PO HS fluticasone propionate 100 mcg/actuation blister powder for inhalation (Flovent Diskus) 1 inh inhalation BID peg 400-propylene glycol (PF) 0.4 %-0.3 % eye drops in a dropperette (Systane (PF)) 1 drp ophthalmic (eye) QID acetaminophen 500 mg tablet 1,000 mg PO Q6H PRN(if needed) Other Notes If you have any questions please call us at [phone] or [phone] or [phone] or [phone]
--- NOTE | 2022-02-23 09:24 | History & Physical Report ---
Date of Service February 23, 2022 date of surgery: 03/24/22 Procedure: Left Total Knee Arthroplasty Surgeon: Ian Sarabia Assessment & Plan (1) Arthritis of knee, left: Plan: Presents for preop evaluation prior to left total knee replacement. She is scheduled for March 24. We will obtain medical clearance as well as preadmission testing at [facility]. She will discuss with them possible outpatient pathway, she was initially supposed to have her right knee as outpatient but was seen in the emergency room a few days before her surgery was recommended she stay overnight. Will place on aspirin 81 mg twice a day for 1 month postop, will schedule for IO vera treatment prior to her surgery. She otherwise has no other questions or concerns The risks and benefits have been discussed including, but not limited to, risk of infection, nerve injury, stiffness, loss of motion, failure to improve, etc. Reasonable outcomes and options of treatment were discussed. An explanation of appropriate alternatives to the procedure that may be advantageous were di scussed and their risks and benefits, as well as the risks and benefits of not proceeding with treatment. I offered to answer any additional inquiries concerning the treatment involved. All the patient's questions were answered. The patient is agreeable, understanding of the treatment plan and alternatives, and wishes to proceed with the treatment plan. History of Present Illness Chief Complaint: left knee pain Primary Care Provider: Ca Lorenzana PA-C Yani is a pleasant 56-year-old female who presents for reevaluation of prior left total knee replacement. She is having pain in this knee for many years now which gradually worsened, is now affecting her daily activities including walking standing going up or down steps. She recently undergone a right total knee replacement as responded well. She had previous cortisone injection as well as viscosupplementation without relief. She tried oral anti-inflammatories and Tylenol. at this point time is failed conservative measures like proceed with a left total knee replacement Allergies Allergy/AdvReac Type Severity Reaction Status Date / Time Sulfa (Sulfonamide Allergy Severe Anaphylaxis Verified 02/12/22 13:18 Antibiotics) formaldehyde Allergy Intermediate Fluid Verified 02/12/22 13:18 build up, difficulty moving (knee injection rxn) nickel Allergy Mild Rash (with Verified 02/22/22 11:25 jewelry) adhesive Allergy Hives Verified 02/12/22 13:18 graham moreno adhesive Allergy Intermediate Hives Uncoded 02/12/22 13:18 Home Medications Medication Instructions Recorded Confirmed Type albuterol sulfate 90 mcg/actuation 2 puff inhalation Q6H PRN 06/29/21 02/12/22 History aerosol inhaler (Ventolin HFA) Shortness Of Breath famotidine 20 mg tablet (Pepcid) 20 mg PO HS 06/29/21 02/12/22 History fiber 2 tab PO QAM 06/29/21 02/12/22 History fluticasone propionate 100 1 inh inhalation BID 06/29/21 02/12/22 History mcg/actuation blister powder for inhalation (Flovent Diskus) fluticasone propionate 50 1 spray intranasal QAM 06/29/21 02/12/22 History mcg/actuation nasal spray,suspension multivitamin 1 tab PO QAM 06/29/21 02/12/22 History nystatin 100,000 unit/gram topical 1 applic topical BID PRN Skin 06/29/21 02/12/22 History powder (Nyamyc) Irritation peg 400-propylene glycol (PF) 0.4 1 drp ophthalmic (eye) QID 06/29/21 02/12/22 History %-0.3 % eye drops in a dropperette (Systane (PF)) montelukast 10 mg tablet 10 mg PO QAM 11/03/21 02/12/22 History acetaminophen 500 mg tablet 1,000 mg PO Q6H PRN Pain 02/12/22 02/12/22 History Past Med/Surg History Medical History Asthma Stable-LAST RESCUE INHALER USE 02/10/22; Follows w/Dr. Chi, [facility] Cardiac murmur Echo 11/24/21 > Possible borderline/very mild aortic stenosis (SÁNCHEZ 1.95cm2, MG 8.0 mmhg) GERD (gastroesophageal reflux disease) Controlled History of COVID-19 Dx 08/27/21 Symptoms at time: fatigue, body aches, sinus symptoms > resolved except residual sinus symptoms Kidney stones Hx Morbid obesity Osteoarthritis Sleep apnea CPAP (compliant) Surgical History History of ankle surgery left History of arthroscopy of left knee History of arthroscopy of right knee History of bilateral tubal ligation History of carpal tunnel surgery of left wrist History of carpal tunnel surgery of right wrist x2 History of cholecystectomy History of colonoscopy History of dilatation and curettage History of endometrial ablation History of lithotripsy History of partial hysterectomy History of repair of right rotator cuff X 2 History of tooth extraction History of total knee arthroplasty Right TKA (11/25/21): SAB x1 attempt + PNB at [facility]. No issues noted per post-op anesthesia progress note. S/P surgical removal of pilonidal cyst S/P trigger finger release R/L thumb Family History Brother Family history of diabetes mellitus Brother Family history of diabetes mellitus Other No family history of adverse response to anesthesia Social History Smoking Status: Former smoker Second Hand Exposure: No; Hx Alcohol Use: Yes Alcohol type: wine and hard liquor Hx Substance Use: No Preferred Language: Uzbek Communication Ability: Effective Maid Cleaning Cooking Required: No Beliefs That Will Affect Care: None marital status: Current Living Situation: Spouse and Family Current Living Situation Comment: Lives with and son current occupational status: employed 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 [employer] Feels Safe at Home: Yes Assistive Devices: Cane, CPAP and Glasses Review of Systems Review of Systems: All systems reviewed & are unremarkable except as noted in HPI & below Constitutional: no fever, no chills and no sweats Respiratory: no cough and no dyspnea Cardiovascular: no chest pain, no dyspnea and no orthopnea Gastrointestinal: no abdominal pain, no nausea and no vomiting Musculoskeletal: as per Subjective / HPI Physical Exam Physical Exam: HT: 5ft 2in WT: 106.14kg Constitutional: WD/WN, vitals as above no acute distress Respiratory: normal respiratory effort, lungs clear to auscultation no respiratory distress, no labored breathing and does not use accessory muscles Cardiovascular: RRR, no murmur, no edema Gastrointestinal (Abdomen): normal bowel sounds, soft, nontender, no hepatosplenomegaly Musculoskeletal: Knee: + knee abnormal to inspection (LEFT KNEE), + effusion (+1 effusion), + limited ROM of knee (ROM 0/3/110), + knee ROM with crepitation, + joint line tenderness (medial joint line) and + Janeth's sign positive; no deformity, no skin erythema, no ecchymosis, no valgus laxity, no varus laxity, anterior drawer test negative, Brianna's sign negative and pivot shift test negative Results & Data Results & Data ([facility]) Diagnostic Findings Left Knee X-ray: left knee series confirm advanced degenerative changes to the left knee, greatest medial compartments and patellofemoral joint, showing joint space narrowing, osteophyte formation and subchondral sclerosis. no acute bony pathology noted.
--- NOTE | 2022-02-23 10:36 | Anesthesiology Consultation ---
Date of Service February 23, 2022 Assessment & Plan (1) Encounter for pre-operative examination: - COVID screening: Per assessment on 02/23: No known COVID-19 positive contacts or current COVID-19 related symptoms. Travel screen negative x2+ weeks. Patient vaccinated. Surgeon arranging preop COVID testing. Awaiting results. - S/P Right TKA (11/25/21): SAB x1 attempt + PNB at [facility]. No issues noted per post-op anesthesia progress note. Chart Review Chart Review: Acceptable Risk for Surgery and Patient seen in Pre Admission Testing Teaching & Discussion Pre-Anesthesia Teaching/Discussion Notes: Instructed NPO after midnight before surgery,except medications with 15 cc of water. Medication instructions provided according to the PAT guidelines. History Surgery Operation Date: 03/24/22 09:00 Proposed Procedures p Left Total Knee Arthroplasty - Ian Sarabia DO Height/Weight Height: 5 ft 2 in Weight: 108.2 kg Allergies Allergy/AdvReac Type Severity Reaction Status Date / Time Sulfa (Sulfonamide Allergy Severe Anaphylaxis Verified 02/12/22 13:18 Antibiotics) formaldehyde Allergy Intermediate Fluid Verified 02/12/22 13:18 build up, difficulty moving (knee injection rxn) nickel Allergy Mild Rash (with Verified 02/22/22 11:25 jewelry) adhesive Allergy Hives Verified 02/12/22 13:18 graham moreno adhesive Allergy Intermediate Hives Uncoded 02/12/22 13:18 Medications Home Medications Medication Instructions Recorded Confirmed Last Taken albuterol sulfate 90 mcg/actuation 2 puff inhalation Q6H PRN 06/29/21 02/12/22 Unknown aerosol inhaler (Ventolin HFA) Shortness Of Breath famotidine 20 mg tablet (Pepcid) 20 mg PO HS 06/29/21 02/12/22 11/23/21 21:30 fiber 2 tab PO QAM 06/29/21 02/12/22 11/24/21 07:00 fluticasone propionate 100 1 inh inhalation BID 06/29/21 02/12/22 11/24/21 21:30 mcg/actuation blister powder for inhalation (Flovent Diskus) fluticasone propionate 50 1 spray intranasal QAM 06/29/21 02/12/22 11/24/21 07: 00 mcg/actuation nasal spray,suspension multivitamin 1 tab PO QAM 06/29/21 02/12/22 11/24/21 07:00 nystatin 100,000 unit/gram topical 1 applic topical BID PRN Skin 06/29/21 02/12/22 Unknown powder ([facility]) Irritation peg 400-propylene glycol (PF) 0.4 1 drp ophthalmic (eye) QID 06/29/21 02/12/22 11/24/21 21:30 %-0.3 % eye drops in a dropperette (Systane (PF)) montelukast 10 mg tablet 10 mg PO QAM 11/03/21 02/12/22 11/24/21 07:00 acetaminophen 500 mg tablet 1,000 mg PO Q6H PRN Pain 02/12/22 02/12/22 Unknown Past Medical History Medical History Asthma Stable Follows w/Dr. Chi, [facility] Cardiac murmur Echo 11/24/21 > Possible borderline/very mild aortic stenosis (SÁNCHEZ VTI 1.95cm2, MG 8.0 mmhg) GERD (gastroesophageal reflux disease) Controlled History of COVID-19 Dx 08/27/21 Symptoms at time: fatigue, body aches, sinus symptoms > resolved except residual sinus symptoms Kidney stones Hx Morbid obesity Osteoarthritis Sleep apnea CPAP (compliant) Exercise / Class Metabolic Activity II 4-5 Yardwork/Stairs/Walk up hill Past Family History Family History Brother Family history of diabetes mellitus Brother Family history of diabetes mellitus Other No family history of adverse response to anesthesia Past Surgical History Surgical History History of ankle surgery left History of arthroscopy of left knee History of arthroscopy of right knee History of bilateral tubal ligation History of carpal tunnel surgery of left wrist History of carpal tunnel surgery of right wrist x2 History of cholecystectomy History of colonoscopy History of dilatation and curettage History of endometrial ablation History of lithotripsy History of partial hysterectomy History of repair of right rotator cuff X 2 History of tooth extraction History of total knee arthroplasty Right TKA (11/25/21): SAB x1 attempt + PNB at [facility]. No issues noted per post-op anesthesia progress note. S/P surgical removal of pilonidal cyst S/P trigger finger release R/L thumb Past Anesthesia History No Hx of Anesthesia Complications and No Family Hx of Anesthesia Complications History of PONV No Hx of PONV and No Hx of Motion Sickness Social History Smoking Status: Former smoker Do You Dip or Chew Tobacco: No Smoking End Date: Quit 33 years ago Hx Alcohol Use: Yes Alcohol type: wine and hard liquor alcohol intake frequency: holidays/special occasions only Hx Substance Use: No substance use type: does not use Review of Systems Patient denies chest pain, shortness of breath, dyspnea on exertion, fever, chills, cough, wheezing, palpitations. Physical Exam Vital Signs VITALS BP 140/72 P 74 TEMP 98.0 SP02 99%RA RESP 16 PHYSICAL Full cervical extension range of motion. Full TMJ range of motion. TMD 3 finger breaths Mallampati Score 3 Dentition: missing molars Lungs: clear throughout to auscultation Cardiac: regular rate and rhythm, very soft murmur Spine: normal Carotid arteries: negative bruit Extremities: no edema Lab Results Anesthesia Preop Results Results Anesthesia Widget: WBC 8.22 K/ul (4.8-10.8) 02/23/22 Hgb 15.5 g/dl (12.0-16.0) 02/23/22 Hct 46.0 % (34.1-44.9) H 02/23/22 Plt 297 K/uL (130-400) 02/23/22 Na 140 mmol/L (136-145) 02/23/22 K 3.6 mmol/L (3.5-5.1) 02/23/22 Cl 104 mmol/L (98-107) 02/23/22 CO2 27 mmol/L (21-32) 02/23/22 BUN 9 mg/dl (6-23) 02/23/22 Creat 0.72 mg/dl (0.6-1.2) 02/23/22 Glucose Level 110 mg/dl (70-99(Fasting)) H 02/23/22 PT 10.7 Seconds (9.0-12.0) 02/23/22 PTT 26.6 Seconds (21.0-31.0) 02/23/22 INR 1.0 (0.9-1.1) 02/23/22 HA1c 6.2 % (4.5-5.6) H 02/23/22 Urine Color Yellow 02/23/22 Urine Appearance Clear (Clear) 02/23/22 Urine pH 6.0 (4.5-7.5) 02/23/22 Urine Specific [place] 1.016 (1.000-1.030) 02/23/22 Urine Protein Negative (Negative) 02/23/22 Urine Glucose (UA) Negative (Negative) 02/23/22 Urine Ketones Negative (Negative) 02/23/22 Urine Blood Trace (Negative) H 02/23/22 Urine Nitrite Negative (Negative) 02/23/22 Urine Bilirubin Negative (Negative) 02/23/22 Urine Urobilinogen Negative (Negative) 02/23/22 Urine Leukocyte Esterase Negative (Negative) 02/23/22 Urine WBC (Auto) 1-5 /hpf (0-5) 02/23/22 Urine RBC (Auto) 0-4 /hpf (0-4) 02/23/22 Urine Hyaline Casts (Auto) 0 /lpf (0-5) 02/23/22 Urine Epithelial Cells (Auto) 10-20 /lpf (0-5) H 02/23/22 Urine Bacteria (Auto) Negative (Negative) 02/23/22 Blood Type B Negative 02/23/22 Antibody Screen NEGATIVE 02/23/22 Testing Electrocardiogram Date: 07/06/21 NSR, rate 68 bpm. Chest X-Ray Date: 07/06/21 FINDINGS: No lines and tubes are seen. The cardiomediastinal silhouette is normal. The lungs are clear. No evidence of pleural effusion or pneumothorax. IMPRESSION: No acute chest disease. Echocardiogram Date: 11/24/21 EF 55-60%. No regional motion abnormality. RVSP 40 mmHg. Aortic valve is not well visualized. There is possible borderline/very mild stenosis (SÁNCHEZ VTI 1.95cm2, MG 8.0 mmHg). Pulmonary Function Test Date: 02/13/21 No evidence of obstructive airway pattern. No significant response to bronchodilators of FEV1 or FVC. Response seen in the small airways. MVV is normal.
[2022-03-24] MEDS ORDERED: ceFAZolin 2000MG 2,000 MG/15 ML SYR IV SCH (06:00)
[2022-03-24] MEDS ORDERED: METOCLOPRAMIDE HCL 10 MG TABLET PO SCH (06:00)
[2022-03-24] MEDS ORDERED: dexAMETHasone 4 MG TAB PO SCH (06:00)
[2022-03-24] MEDS ORDERED: ACETAMINOPHEN 500 MG TAB PO SCH (06:00)
[2022-03-24] MEDS ORDERED: TRANEXAMIC ACID 1,000 MG **IV Pre-op IV SCH (06:00)
[2022-03-24] MEDS ORDERED: GABAPENTIN 600 MG DOSE PO SCH (06:00)
[2022-03-24] MEDS ORDERED: ROPIVACAINE 0.5% HCL/PF 150 MG, BUPIVACAINE 0.75% MPF 20 ML, EPINEPHrine 30MG/30ML (OR ... INSTIL SCH (06:00)
[2022-03-24] MEDS ORDERED: TRANEXAMIC ACID 1,000 MG **IV Intra-op IV SCH (06:00)
[2022-03-24] MEDS ORDERED: FAMOTIDINE 20 MG TAB PO SCH (06:00)
[2022-03-24] MEDS ORDERED: LR 500ML BOLUS, THEN 15ML/HR IV SCH (06:00)
[2022-03-24] MEDS ORDERED: BUPIVACAINE 0.5 % 5 MG/1 ML PF 10ML VIAL ONE (06:24)
[2022-03-24] MEDS ORDERED: ROPIVACAINE 0.5% 5 MG/ML 30 ML VIAL ONE (06:25)
[2022-03-24] MEDS ORDERED: fentaNYL citrate 100 MCG/2 ML VIAL ONE (07:06)
[2022-03-24] MEDS ORDERED: PROPOFOL IV EMULSION 10 MG/ML 20 ML VIAL IV ONE (07:06)
[2022-03-24] MEDS ORDERED: LIDOCAINE 2% 2 ML VIAL/AMP(20MG/ML) INFIL ONE (07:06)
[2022-03-24] MEDS ORDERED: MIDAZOLAM HCL 1 MG/ML 2ML VIAL ONE (07:06)
--- NOTE | 2022-03-24 07:11 | History & Physical Bridge Note ---
Date of Service March 24, 2022 History & Physical Bridge Note I have examined the patient, reviewed the History & Physical and in the interval since the performance of the History & Physical I have noted the following changes of clinical significance: no changes noted
[2022-03-24] MEDS ORDERED: ATROPINE SULFATE 0.1 MG/ML 10ML SYR IV PRN (07:18)
[2022-03-24] MEDS ORDERED: ePHEDrine sulfate 50 MG/ML AMP IV PRN (07:18)
[2022-03-24] MEDS ORDERED: ONDANSETRON INJ 2 MG/ML 2 ML VIAL IV PRN ×2 (07:18→11:37)
[2022-03-24] MEDS ORDERED: fentaNYL citrate 100 MCG/2 ML VIAL IV PRN (07:18)
[2022-03-24] MEDS ORDERED: ORTHO JOINT ANESTHETIC ONE (08:08)
[2022-03-24] MEDS ORDERED: ONDANSETRON INJ 2 MG/ML 2 ML VIAL ONE (09:18)
--- NOTE | 2022-03-24 09:26 | Operative Report ---
Post Operative Report Pre & Post Diagnosis Operation Date: 03/24/22 08:00 Pre-Op Diagnosis: Osteoarthritis, Left Knee Post-Op Diagnosis: Osteoarthritis, Left Knee Procedure Operation Date: 03/24/22 08:00 Actual Procedures p Left Total Knee Arthroplasty, Cemented(Left) - Ian Sarabia DO Surgeon Ian Sarabia DO Estimated Blood Loss 5 I attest to the content of the Intraoperative Record and any orders documented therein. Any exceptions are noted below.
--- NOTE | 2022-03-24 09:31 | Operative Report ---
Post Operative Report Pre & Post Diagnosis Operation Date: 03/24/22 08:00 Pre-Op Diagnosis: Osteoarthritis, Left KneeMorbid obesity BMI 43.1 Post-Op Diagnosis: Osteoarthritis, Left KneeMorbid obesity BMI 43.1 I identified the patient and participated in the time-out.: Yes Procedure Operation Date: 03/24/22 08:00 Actual Procedures p Left Total Knee Arthroplasty, Cemented(Left)Utilizing [employer] persona patient matched utilizing [employer] persona patient matched femur 6 narrow tibia D polyten patella 28 - Ian Sarabia DO Surgeon Ian Sarabia DO Correspondence Section Supervisor Albert MEIDNA Estimated Blood Loss 5 Findings Consistent with Post-Op Diagnosis Patient has severe end-stage DJD left knee eburnated [id number] marginal osteophyte subchondral sclerosis with subchondral cystic changes and moderate to large effusion Specimens Bone and cartilage Drains Medium bore Hemovac Anesthesia Type MAC Spinal Regional Complications none Disposition Accompanied Patient To Recovery: No Disposition: Recovery Room Indications Patient presents with severe end-stage DJD left knee no response to conservative management for left total knee arthroplasty patient failed attempted conservative measures including physical therapy anti-inflammatories relative rest activity modification corticosteroid injection viscosupplementation Description of Procedure After proper prepping and draping of the left lower extremity anterior midline incision was made over the region of the extensor extensor mechanism after meticulous hemostasis was obtained and maintained in subcutaneous tissues a medial parapatellar incision was made The patella was subluxed lateralward the medial lateral gutter were cleaned from any hypertrophic synovitis and scar tissue of the distal femoral block was placed and the distal femoral osteotomy cut was made subsequently the chamfers anterior and posterior osteotomy cuts were made utilizing the 4-in-1 block the tibia was subsequently subluxed anteriorward medial and ateral meniscal remnants were excised in their entirety remnants of the anterior and posterior cruciate ligaments were excised in their entirety excellent exposure of the proximal tibia was obtained the tibial osteotomy guide was placed on the proximal tibial osteotomy cut was made once ag ain the knee was irrigated with copious amounts of sterile saline solution the patella was subsequently everted lateralward thickened scar tissue around the patella was removed the patella was subsequently cut utilizing a freehand technique and was drilled prepared for final preparation and placement of patella socially flexion-extension gaps were checked and the equal and symmetric trials were placed to the appropriate femoral and tibial trials with poly-spacer being placed for equal flexion and extension gaps and full range of motion including extension to 0 and flexion to 140 the trial components after having been taken to recovery range of motion was subsequently removed meticulous hemostasis was obtained and maintained subsequently a knee block injection of joint cocktail including ropivacaine 0.5% 150 mg. Bupivacaine 0.5% epinephrine 1-200,030 mL's toradol 30 mg dexamethasone 4 mg ketamine 10 mg clonidine 100 micrograms normal saline solution 30 mg was infiltrated into the soft tissues of the posterior knee medial lateral gutters and periosteal synovium special attention was paid to protect neurovascular structures at all times subsequently trial components having been removed the knee was irrigated with sterile saline solution. debris was removed the proximal tibia was subsequently prepared and was made ready for the placement of the tibial component tibial component was also cemented and tamped into position the femoral component was subsequently placed and cemented in the position the patellar component was subsequently cemented in position because hemostasis once again obtained and maintained wound having been thoroughly irrigated with debridement and debridement lavage was performed as well as a medial parapatellar incision closed with #1 Vicryl in interrupted fashion subcutaneous was closed with #2 Vicryl skin was closed with skin clips. PA-C was necessary for prepping and drapping as well as wound closure of deep fascia Sub cutaneous tissue and skin and was necessary for the case. A sterile compressive dressing was placed patient was taken to recovery in stable condition of report dictated by Cornell I attest to the content of the Intraoperative Record and any orders documented therein. Any exceptions are noted below.Due to the complex nature of the procedure, the entire surgery was performed with the operational assistance of Lara Hunt patient is106.8 kg with a BMI of43.1. The patient's habitus did contribute to significant technical difficulty requiring extra time. Additional help was necessary in order to position the patient safely. The use of specialized (longer, deeper) retractors and/or instruments were needed. Due to this, the procedure took 20 minutes longer than the standard total knee arthroplasty."]. The hearing aid assistant, under direct supervision, was involved in the actual performance of all aspects of the surgical procedure including hemostasis, tissue retraction and incision, instrument management, patient positioning, and wound closure. I attest to the content of the Intraoperative Record and any orders documented therein. Any exceptions are noted below.
--- NOTE | 2022-03-24 10:59 | XRay Report ---
TWO VIEWS LEFT KNEE CLINICAL HISTORY: Postoperative examination. FINDINGS: AP and crosstable lateral portable views of the left knee are obtained. A left knee arthrop lasty is in near anatomic alignment. There has been undersurface remodeling of the patella. No acute fracture is seen. There are expected postoperative changes around the knee including a surgical drain , soft tissue edema, and subcutaneous gas. IMPRESSION: Expected postoperative changes status post left knee arthroplasty. No acute fracture is s een. ACT 112: Negative or not required by law. Electronically signed by: Dilip Mac M.D. 03/24/2022 10:58 AM
[2022-03-24] MEDS ORDERED: NYSTATIN POWDER 15GM BTL EXT PRN (11:37)
[2022-03-24] MEDS ORDERED: NALOXONE HCL 0.4 MG/1 ML VIAL/CARP IV PRN (11:37)
[2022-03-24] MEDS ORDERED: HYDROmorphone INJ 0.5 MG/0.5 ML SYR IV PRN (11:37)
[2022-03-24] MEDS ORDERED: bisacodyL 10 MG SUPP PR PRN (11:37)
[2022-03-24] MEDS ORDERED: MAGNESIUM HYDROXIDE SUSP 30 ML UDC PO PRN (11:37)
[2022-03-24] MEDS ORDERED: ALBUTEROL HFA 8 GM INHALER INH PRN (11:37)
[2022-03-24] MEDS ORDERED: SODIUM CHLORIDE 0.9% 1000ML 1,000 ML IV SCH (11:37)
[2022-03-24] MEDS: KETOROLAC TROMETHAMINE 15 MG/ML VIAL IV SCH ×2 (12:46→17:39)
--- NOTE | 2022-03-24 13:14 | Anesthesiology Progress Note ---
Date of Service March 24, 2022 Anesthesia Post Procedure Vital Signs Vital Signs: Temp Pulse Pulse Resp BP BP Pulse Ox 03/24/22 12:39 36.9 C 67 17 107/78 95 03/24/22 12:05 36.7 C 54 L 17 106/69 94 03/24/22 11:35 36.4 C L 61 17 121/71 95 03/24/22 11:20 36.5 C 52 L 18 104/56 L 94 03/24/22 11:10 59 L 22 116/60 98 03/24/22 11:00 52 L 15 94/48 L 93 03/24/22 10:50 51 L 19 94/50 L 93 03/24/22 10:40 55 L 18 98/47 L 95 03/24/22 10:30 54 L 14 91/47 L 100 03/24/22 10:20 61 18 84/51 L 100 03/24/22 10:13 36.6 C 66 18 91/48 L 98 03/24/22 05:59 36.6 C 80 20 135/92 98 O2 Del Method O2 Flow Rate 03/24/22 12:39 Room Air 03/24/22 12:05 Room Air 03/24/22 11:35 Room Air 03/24/22 11:20 Room Air 03/24/22 11:10 Room Air 03/24/22 11:00 Room Air 03/24/22 10:50 Room Air 03/24/22 10:40 Room Air 03/24/22 10:30 Oxymask 6 03/24/22 10:20 Oxymask 6 03/24/22 10:13 Oxymask 6 03/24/22 05:59 Room Air Transfer of Care Handoff Completed per policy Notes Mental Status: alert / awake / arousable Patient Amnestic to Procedure: Yes Nausea / Vomiting: adequately controlled Pain: adequately controlled Airway Patency, RR, SpO2: stable & adequate BP & HR: stable & adequate Hydration State: stable & adequate Neuraxial Anesthesia: was administered and sensory block is resolving Anesthetic Complications: no major complications apparent and Pt Satisfied with anesthetic care
[2022-03-24] MEDS: SYSTANE OP SCH ×3 (13:23→21:06)
[2022-03-24] MEDS: ACETAMINOPHEN 500 MG TAB PO SCH ×2 (13:25→21:09)
[2022-03-24] MEDS: ceFAZolin 2000MG 2,000 MG/15 ML SYR IV SCH (16:30)
[2022-03-24] MEDS ORDERED: SENNA 8.6 MG TAB PO SCH (21:00)
[2022-03-24] MEDS: FLOVENT INH SCH (21:06)
[2022-03-24] MEDS: ASPIRIN 81 MG ECTAB PO SCH (21:07)
[2022-03-24] MEDS: DOCUSATE SODIUM 100 MG CAP PO SCH (21:07)
[2022-03-24] MEDS: oxyCODONE HCL IR 5 MG TAB (IMMEDIATE RELEASE) PO PRN (21:14)
[2022-03-25] MEDS: KETOROLAC TROMETHAMINE 15 MG/ML VIAL IV SCH ×3 (00:49→12:28)
[2022-03-25] MEDS: ceFAZolin 2000MG 2,000 MG/15 ML SYR IV SCH (00:49)
[2022-03-25] MEDS: oxyCODONE HCL IR 5 MG TAB (IMMEDIATE RELEASE) PO PRN ×3 (04:02→12:27)
[2022-03-25] MEDS: ACETAMINOPHEN 500 MG TAB PO SCH (05:51)
[2022-03-25 07:53] LABS: Hematocrit (blood only) 38.6 % (34.1-44.9); Hemoglobin 12.8 g/dl (12.0-16.0); Mean Corpuscular Hemoglobin 29.4 pg (25.0-34.0); Mean Corpuscular Hgb Conc 33.2 g/dL (32.0-36.0); Mean Corpuscular Volume 88.5 fL (80.0-100.0); Mean Platelet Volume 9.7 fL (9.4-12.3); Platelet Count 273 K/uL (130-400); RDW Coefficient of Variation 13.9 % (11.5-14.5); RDW Standard Deviation 44.9 fL (36.4-46.3); Red Blood Count 4.36 M/uL (3.93-5.22); White Blood Count 15.39 K/ul (4.8-10.8)
[2022-03-25 08:14] LABS: BUN Creatinine Ratio 21.9 (10-20); Creatinine Clr Calc Pharmacy 115.5 ml/min; Est GFR (African American) 117.3 ml/min; Est GFR (Non-African American) 101.2 ml/min; Potassium 3.9 mmol/L (3.5-5.1)
[2022-03-25] MEDS: DOCUSATE SODIUM 100 MG CAP PO SCH (08:29)
[2022-03-25] MEDS: SYSTANE OP SCH ×2 (08:30→12:28)
[2022-03-25] MEDS: FLOVENT INH SCH (08:33)
[2022-03-25] MEDS: ASPIRIN 81 MG ECTAB PO SCH (08:33)
[2022-03-25] MEDS ORDERED: MULTIVITAMIN TAB PO SCH (09:00)
[2022-03-25] MEDS ORDERED: PANTOprazole 40 MG TAB PO SCH (09:00)
[2022-03-25] MEDS ORDERED: FLUTICASONE PROPIONATE NA SPR 16 GM BTL SCH (09:00)
[2022-03-25] MEDS ORDERED: MONTELUKAST SODIUM 10 MG TABLET PO SCH (09:00)
--- NOTE | 2022-03-25 09:11 | Orthopedic Progress Note ---
Date of Service March 25, 2022 Assessment & Plan (1) Arthritis of knee, left: Plan: Postop day 1 status post left total knee arthroplasty. PT/OT protocols. Weightbearing as tolerated. DVT prophylaxis-aspirin p.o. twice daily, BRAD Gutierrez. Pain management as written. DC planning-patient is planning for home health services upon discharge. Admission and Anticipated Discharge Date Admission Date: March 24, 2022 Subjective Postop day 1 Patient sitting up eating breakfast this morning. No complaints this morning. Pain is controlled. Denies shortness of breath, chest pain, lightheadedness. Physical Exam Physical Exam: Signs are clean, dry, and intact. Calves are soft and nontender. Neurovascular is intact. Toes are mobile. She has good dorsiflexion and plantarflexion of her left foot. Hemovac drainage was 150 mL from the previous shift. Results & Data ([facility]) Vital Signs (Past 12 Hours) Vital Signs Temp Pulse Resp BP Pulse Ox O2 Del Method 03/25/22 05:32 36.6 C 46 L 14 102/63 98 Nasal CPAP 03/25/22 03:21 35 C L 48 L 14 100/56 L 98 CPAP 03/24/22 22:41 36.8 C 54 L 12 98/61 L 97 Room Air Laboratory Results Laboratory Results WBC 15.39 K/ul (4.8-10.8) H 03/25/22 07: RBC 4.36 M/uL (3.93-5.22) 03/25/22 07:22 Hgb 12.8 g/dl (12.0-16.0) 03/25/22 07:22 Hct 38.6 % (34.1-44.9) 03/25/22 07:22 MCV 88.5 fL (80.0-100.0) 03/25/22 07:22 MCH 29.4 pg (25.0-34.0) 03/25/22 07: MCHC 33.2 g/dL (32.0-36.0) 03/25/22 07: RDW Std Deviation 44.9 fL (36.4-46.3) 03/25/22 07: RDW Coeff of Hardeep 13.9 % (11.5-14.5) 03/25/22 07:22 Plt Count 273 K/uL (130-400) 03/25/22 07:22 MPV 9.7 fL (9.4-12.3) 03/25/22 07:22 Sodium 137 mmol/L (136-145) 03/25/22 07:22 Potassium 3.9 mmol/L (3.5-5.1) 03/25/22 07:22 Chloride 104 mmol/L (98-107) 03/25/22 07:22 Carbon Dioxide 25 mmol/L (21-32) 03/25/22 07:22 Anion Gap 8 (3-11) 03/25/22 07:22 BUN 14 mg/dl (6-23) 03/25/22 07:22 Creatinine 0.64 mg/dl (0.6-1.2) 03/25/22 07:22 Est Cr Clr Drug Dosing 115.5 ml/min 03/25/22 07:22 Est GFR ( Amer) 117.3 ml/min 03/25/22 07:22 Est GFR (Non-Af Amer) 101.2 ml/min 03/25/22 07:22 BUN/Creatinine Ratio 21.9 (10-20) H 03/25/22 07:22 Glucose 137 mg/dl (70-99(Fasting)) H 03/25/22 07:22 Calcium 9.0 mg/dl (8.5-10.1) 03/25/22 07:22 SARS-CoV-2, RNA, NAAT NEGATIVE (NEGATIVE) 03/24/22 05:50 Impressions Knee X-Ray 03/24/22 10:23 TWO VIEWS LEFT KNEE CLINICAL HISTORY: Postoperative examination. FINDINGS: AP and crosstable lateral portable views of the left knee are obtained. A left knee arthroplasty is in near anatomic alignment. There has been undersurface remodeling of the patella. No acute fracture is seen. There are expected postoperative changes around the knee including a surgical drain, soft tissue edema, and subcutaneous gas. IMPRESSION: Expected postoperative changes status post left knee arthroplasty. No acute fracture is seen. ACT 112: Negative or not required by law. Electronically signed by: Dilip Mac M.D. 03/24/2022 10:58 AM
--- NOTE | 2022-04-01 12:33 | Discharge Summary ---
Date of Service April 01, 2022 Admission HPI Per Admitting Provider Yani is a pleasant 56-year-old female who presents for reevaluation of prior left total knee replacement. She is having pain in this knee for many years now which gradually worsened, is now affecting her daily activities including walking standing going up or down steps. She recently undergone a right total knee replacement as responded well. She had previous cortisone injection as well as viscosupplementation without relief. She tried oral anti-inflammatories and Tylenol. at this point time is failed conservative measures like proceed with a left total knee replacement Admission Exam Per Admitting Provider Physical Exam: HT: 5ft 2in WT: 106.14kg Constitutional: WD/WN, vitals as above no acute distress Respiratory: normal respiratory effort, lungs clear to auscultation no respiratory distress, no labored breathing and does not use accessory muscles Cardiovascular: RRR, no murmur, no edema Gastrointestinal (Abdomen): normal bowel sounds, soft, nontender, no hepatosplenomegaly Musculoskeletal: Knee: + knee abnormal to inspection (LEFT KNEE), + effusion (+1 effusion), + limited ROM of knee (ROM 0/3/110), + knee ROM with crepitation, + joint line tenderness (medial joint line) and + Janeth's sign positive; no deformity, no skin erythema, no ecchymosis, no valgus laxity, no varus laxity, anterior drawer test negative, Brianna's sign negative and pivot shift test negative Principal Diagnosis Left knee osteoarthritis Discharge Data Allergies Allergy/AdvReac Type Severity Reaction Status Date / Time Sulfa (Sulfonamide Allergy Severe Anaphylaxis Verified 03/24/22 06:05 Antibiotics) formaldehyde Allergy Intermediate Fluid Verified 03/24/22 06:05 build up, difficulty moving (knee injection rxn) nickel Allergy Mild Rash (with Verified 03/24/22 06:05 jewelry) adhesive Allergy Hives Verified 03/24/22 06:05 grahamkeara moreno adhesive Allergy Intermediate Hives Uncoded 03/24/22 06:05 Procedures Performed Operation Date: 03/24/22 08:00 Actual Procedures p Left Total Knee Arthroplasty, Cemented(Left) - Ian Sarabia DO Ordered Studies 03/24/22 05:00 US - OR guided needle placemen Routine Hospital Course (1) Arthritis of knee, left: [facility], [id number] Orthopedic Progress Note Signed Patient:RIGO MERCER Admit Date:03/24/22 MR#:[id number] Att Phy:Ian Sarabia D.O. Acct ID:[id number] Sonia Phy:Dillan Ocampo PA-C Date:1965 Fam Phy: Age:56 Location:3W Sex:F Room/Bed:[facility] cc: ~ *NOTICE TO RECEIVING GREEN PARTY/AGENCY This information is strictly Confidential and protected under [place] law. [place] law prohibits you from making any further disclosure of this information unless further disclosure is expressly permitted by the written consent of the person to whom it pertains or is authorized by law. A general authorization for the release of medical or other information is not sufficient for this purpose. Hospital accepts no responsibility if the information is made available to any other person, INCLUDING THE PATIENT. Date of Service March 25, 2022 Assessment & Plan (1) Arthritis of knee, left: Plan: Postop day 1 status post left total knee arthroplasty. PT/OT protocols. Weightbearing as tolerated. DVT prophylaxis-aspirin p.o. twice daily, SCDs, BRAD hose. Pain management as written. DC planning-patient is planning for home health services upon discharge. Admission and Anticipated Discharge Date Admission Date: March 24, 2022 Subjective Postop day 1 Patient sitting up eating breakfast this morning. No complaints this morning. Pain is controlled. Denies shortness of breath, chest pain, lightheadedness. Physical Exam Physical Exam: Signs are clean, dry, and intact. Calves are soft and nontender. Neurovascular is intact. Toes are mobile. She has good dorsiflexion and plantarflexion of her left foot. Hemovac drainage was 150 mL from the previous shift. Results & Data ([facility]) Vital Signs (Past 12 Hours) Vital Signs Temp Pulse Resp BP Pulse Ox O2 Del Method 03/25/22 05:32 36.6 C 46 L 14 102/63 98 Nasal CPAP 03/25/22 03:21 35 C L 48 L 14 100/56 L 98 CPAP 03/24/22 22:41 36.8 C 54 L 12 98/61 L 97 Room Air Laboratory Results Laboratory Results WBC 15.39 K/ul (4.8-10.8) H 03/25/22 07:22 RBC 4.36 M/uL (3.93-5.22) 03/25/22 07:22 Hgb 12.8 g/dl (12.0-16.0) 03/25/22 07:22 Hct 38.6 % (34.1-44.9) 03/25/22 07:22 MCV 88.5 fL (80.0-100.0) 03/25/22 07:22 MCH 29.4 pg (25.0-34.0) 03/25/22 07: MCHC 33.2 g/dL (32.0-36.0) 03/25/22: RDW Std Deviation 44.9 fL (36.4-46.3) 03/25/22 07: RDW Coeff of Hardeep 13.9 % (11.5-14.5) 03/25/22 07: Plt Count 273 K/uL (130-400) 03/25/22 07:22 MPV 9.7 fL (9.4-12.3) 03/25/22 07:22 Sodium 137 mmol/L (136-145) 03/25/22 07:22 Potassium 3.9 mmol/L (3.5-5.1) 03/25/22 07:22 Chloride 104 mmol/L (98-107) 03/25/22 07: Carbon Dioxide 25 mmol/L (21-32) 03/25/22 07:22 Anion Gap 8 (3-11) 03/25/22 07:22 BUN 14 mg/dl (6-23) 03/25/22 07:22 Creatinine 0.64 mg/dl (0.6-1.2) 03/25/22 07:22 Est Cr Clr Drug Dosing 115.5 ml/min 03/25/22 07:22 Est GFR ( Amer) 117.3 ml/min 03/25/22 07:22 Est GFR (Non-Af Amer) 101.2 ml/min 03/25/22 07:22 BUN/Creatinine Ratio 21.9 (10-20) H 03/25/22 07:22 Glucose 137 mg/dl (70-99(Fasting)) H 03/25/22 07:22 Calcium 9.0 mg/dl (8.5-10.1) 03/25/22 07:22 SARS-CoV-2, RNA, NAAT NEGATIVE (NEGATIVE) 03/24/22 05:50 Impressions Knee X-Ray 03/24/22 10:23 TWO VIEWS LEFT KNEE CLINICAL HISTORY: Postoperative examination. FINDINGS: AP and crosstable lateral portable views of the left knee are obtained. A left knee arthroplasty is in near anatomic alignment. There has been undersurface remodeling of the patella. No acute fracture is seen. There are expected postoperative changes around the knee including a surgical drain, soft tissue edema, and subcutaneous gas. IMPRESSION: Expected postoperative changes status post left knee arthroplasty. No acute fracture is seen. ACT 112: Negative or not required by law. Electronically signed by: Dilip Mac M.D. 03/24/2022 10:58 AM Total Time Total Time Spent Total Time Spent (In Minutes): 5 Discharge Plan Discharge Items Patient Disposition: Home - Home Health Services Reason For Visit: Osteoarthritis, Left Knee Discharge Diagnosis: Osteoarthritis Left knee Activity: Per Instructions section Weightbearing: Left weightbearing Weightbearing Comment: as tolerated with walker Non-emergency contact: Surgeon Call non-emergency contact if: you have any medication questions, your pain is not controlled, your temperature is above 101.5, your wound has increased redness and your wound has increased drainage Follow-up/Referrals: Ian Sarabia DO [Surgeon] - (Follow up with Dr Sarabia in 2 weeks from the day of your surgery for your first post operative visit.) Valeria Ocampo PA-C [Primary Care Provider] - Diet: Regular Addtl Attending Provider Instructions: ACTIVITY RECOMMENDATIONS: SELF CARE INSTRUCTIONS AFTER TOTAL KNEE REPLACEMENT A. You may need to continue a physical therapy program after discharge from the hospital. There are several options available to you. Your doctor will assist you in selecting the best one for you. 1. An out-patient facility 2 to 3 times a week for therapy or home therapy. 2. Continue working on all exercises taught to you in the hospital. Your goals should be to increase bending of your knee to 90 degrees and beyond and to fully straighten your knee. B. You may progress at your own pace from walking with a walker or crutches to a cane; then to no assistive devices. C. Make walking a part of your daily routine. Be up as much as comfortable with rest periods throughout the day. Rest with leg elevation is very important. Use the ice wrap frequently for the first 3-4 weeks. D. There are no restrictions on activities. You may ride in a car, shop, participate in associate dean and all social activities. E. Wear the long elastic stockings (BRAD hose) 20 hours a day for 2 weeks after surgery. They can be removed several times a day for laundering and for a bath. F. You may shower, no tub baths until cleared by your doctor. SPECIAL CARE INSTRUCTIONS: VERY IMPORTANT TO READ AND REVIEW A. There are a few signs you need to watch for after you are home. Call [facility] if you notice any of the followin. Increased severe knee pain. Some pain is expected especially when you exercise. 2. Increased swelling in your leg or knee; pain or swelling of the calf muscle in either lower leg. 3. Any fluid drainage from the incision. 4. Shortness of breath or chest pain. B. Please call [facility] at if you have any concerns or questions about your operation or recovery. The doctor or his nurse will return your call promptly. C. You must take antibiotics before dental work, bladder, bowel or other surgery. Your doctor will provide you with a permanent care to carry describing this precaution. IMPORTANT: * REMEMBER TO TAKE ASPIRIN, 81 MG, TWICE DAILY FOR 4 WEEKS UNLESS OTHERWISE DIRECTED. THIS IS YOUR BLOOD THINNER. * HIGH RISK PATIENTS MAY BE PRESCRIBED A STRONGER BLOOD THINNER. THIS WILL BE PROVIDED AT DISCHARGE. * CALL IF INCREASED PAIN, REDNESS, DRAINAGE OR FEVER GREATER THAT 101. * WEAR BRAD HOSE 20 HOURS PER DAY FOR 2 WEEKS. * DARRYL Dressing - This is a large suction dressing covering your incision. This will help pull any excess drainage from the wound and allow your incision to heal properly. You may shower with this if you can keep the unit outside of the shower. If any bleeding or leakage is noted please call your doctor's office. This will remain on your incision for 7 days and then should be removed. This can be done yourself or by the home nursing staff if applicable. The entire unit is disposable once removed. Once removed, keep incision clean and dry. If redness or drainage is noted, please call your surgeon. . Once Darryl is removed, follow the wound care instructions below. * DERMABOND Prineo- This is a mesh tape dressing that is covered with glue. It should remain in place until the incision is properly healed, usually 10-14 days. This dressing is designed to naturally slough off. You may trim the excess mesh tape as it peels off. Incision may be briefly wet in a shower. Dry immediately by blotting with a clean, dry towel. Do not bath or swim until instructed by your doctor. Do not scratch, rub, or pick at the dressing. Do not apply any topical ointments or lotions until dressing is completely removed and/or instructed by your doctor. There may be a small piece of suture material at one end of your incision. Do not pull or trim this. If it is bothersome or catching on clothing, you may co markus it with a band-aid. FOLLOW UP VISIT: If appointment is not already scheduled: Please call [facility] to make a follow-up appointment for 2 weeks after your surgery at . Stand-Alone Forms: My [facility], Opioid Pain Management, Smoking Cessation Medications and DC Order Prescriptions: New acetaminophen [Tylenol Extra Strength] 500 mg Tablet 1,000 mg PO Q8 14 Days Qty: 84 0RF aspirin 81 mg Tablet,Delayed Release (Dr/Ec) 81 mg PO BID 30 Days Qty: 60 0RF polyethylene glycol 3350 [Miralax] 17 gram powder in packet 17 g PO DAILY PRN (Reason: constipation) Qty: 5 0RF cefadroxil 500 mg capsule 500 mg PO BID Qty: 28 1RF oxycodone 5 mg tablet 5 mg PO Q4H MDD 6 PRN (Reason: pain) Qty: 30 0RF Continued multivitamin Tablet 1 tab PO QAM famotidine [Pepcid] 20 mg Tablet 20 mg PO HS Flovent Diskus 100 mcg/actuation Blister With Device 1 inh INHALATION BID nystatin [Nyamyc] 100,000 unit/gram Powder 1 applic TOPICAL BID PRN (Reason: Skin Irritation) albuterol sulfate [Ventolin HFA] 90 mcg/actuation Hfa Aerosol Inhaler 2 puff INHALATION Q6H PRN (Reason: Shortness Of Breath) fluticasone propionate 50 mcg/actuation [place],Suspension 1 spray INTRANASAL QAM Systane (PF) 0.4-0.3 % Dropperette 1 drp OPHTHALMIC (EYE) QID fiber Tablet,Chewable 2 tab PO QAM montelukast 10 mg Tablet 10 mg PO QAM Discontinued acetaminophen 500 mg Tablet 1,000 mg PO Q6H PRN (Reason: Pain) Rx Instructions: take 1 hour before therapy Discharge Orders: Discharge Order (Routine); Ordered 03/25/22 Ordered By: Albert Brown/Other Patient Handouts: Knee Surg Exercise After, Tips After Knee Surgery Admission Data Admit Date/Time: 03/24/22 10:23 Attending Provider: Ian Sarabia Admit Provider: Ian Sarabia Primary Care Provider: Valeria Ocampo Other Interventions: Discharge Summary Assessment (RN) Last Done: 03/25/22 12:03
== END 2022-03-25 13:38 | disposition home health service (06) ==
LOC: 3W 05:42 → ASU 05:42